=== PATIENT | female | born 1975 | race Caucasian/White ===

== ENCOUNTER 2016-08-13 13:19 | Emergency (ER) | payer SELFPAY ==
[2016-08-13 13:43] VITALS: BP 124/76
[2016-08-13] MEDS ORDERED: Ibuprofen TAB* 600 MG PO ONE (13:50)
--- NOTE | 2016-08-13 14:03 | UC ---
Throat Pain/Nasal Guero HPI - HPI Summary HPI Summary: Sore throat since yesterday. Fever of 101. Immunizations uTD. - History of Current Complaint Chief Complaint: UCGeneralIllness Stated Complaint: SORE THROAT,FEVER Time Seen by Provider: 08/13/16 13:44 Hx Obtained From: Patient Hx Last Menstrual Period: 08/06/16 ?: No Onset/Duration: Gradual Onset, Lasting Days Severity: Severe Cough: None Associated Signs & Symptoms: Positive: Dysphagia, Fever. Negative: FB Sensation , Drooling, Wheezing, Hoarseness, Sinus Discomfort, Nasal Discharge, Vomiting, Rash - Allergies/Home Medications Allergies/Adverse Reactions: Allergies Allergy/AdvReac Type Severity Reaction Status Date / Time No Known Allergies Allergy Verified 08/13/16 13:37 PMH/Surg Hx/FS Hx/Imm Hx Endocrine History Of: Denies: Diabetes - Surgical History Surgical History: Yes Surgery Procedure, Year, and Place: [facility] x3 - Family History Known Family History: Positive: Other - no related family ent history. - Social History Occupation: Employed Full-time Alcohol Use: None Substance Use Type: None Smoking Status (MU): Never Smoked Tobacco - Immunization History Most Recent Influenza Vaccination: 2016 Most Recent Tetanus Shot: UTD Review of Systems All Other Systems Reviewed And Are Negative: Yes Physical Exam Triage Information Reviewed: Yes Appearance: Well-Appearing, No Pain Distress, Obese Vital Signs: Initial Vital Signs Temp 100 F 08/13/16 13:37 Pulse 117 08/13/16 13:37 Resp 18 08/13/16 13:37 BP 124/76 08/13/16 13:37 Pulse Ox 99 08/13/16 13:37 Vital Signs Reviewed: Yes Eye Exam: Normal ENT: Positive: Pharyngeal erythema, TMs normal, Tonsillar swelling, Tonsillar exudate. Negative: Trismus, Muffled/hoarse voice Neck: Positive: Enlarged Nodes @ - dago submandibular. Respiratory Exam: Normal Cardiovascular Exam: Normal Abdominal Exam: Normal Musculoskeletal Exam: Normal Neurological Exam: Normal Psychological Exam: Normal Skin Exam: Normal Throat Pain/Nasal Course/Dx - Course Course Of Treatment: non toxic. pleasant. purulence, strawbery pharynx and swelling.c/w bacterial pharyngitis. - Differential Dx/Diagnosis Provider Diagnoses: bacterial pharyngitis. Discharge - Discharge Plan Condition: Good Disposition: HOME Prescriptions: Amoxicillin/Clavulanate TAB* [Augmentin TAB 875*] 875 mg PO BID #20 tab Ibuprofen TAB* [Motrin TAB* 600 MG] 600 mg PO Q6H PRN #20 tab PRN Reason: Pain Patient Education Materials: Strep Throat (ED) Forms: *Work Release Referrals: Everette Marino MD [Primary Care Provider] - If Needed
== END 2016-08-13 14:05 | disposition home or self-care (01) ==
LOC: UCCORT 13:19
DX: J20.8 Acute bronchitis due to other specified organisms (principal); R50.9 Fever, unspecified; E66.9 Obesity, unspecified
CPT/HCPCS: 99212; A9270-GY; G0463

== ENCOUNTER 2018-03-22 14:42 | Emergency (ER) | payer OTHER ==
[2018-03-22 15:22] VITALS: BP 124/82
--- NOTE | 2018-03-22 16:55 | UC ---
Throat Pain/Nasal Guero HPI - HPI Summary HPI Summary: C/O sore throat x 3 days with fever today. Slight cough - History of Current Complaint Chief Complaint: UCGeneralIllness Stated Complaint: SORE THROAT Time Seen by Provider: 03/22/18 16:48 Hx Last Menstrual Period: 03/08/18 ?: No Onset/Duration: Sudden Onset, Lasting Days - 3, Worse Since - today Severity: Moderate Pain Intensity: 7 Cough: Nonproductive Associated Signs & Symptoms: Positive: Dysphagia - Allergies/Home Medications Allergies/Adverse Reactions: Allergies Allergy/AdvReac Type Severity Reaction Status Date / Time No Known Allergies Allergy Verified 03/22/18 15:23 PMH/Surg Hx/FS Hx/Imm Hx Previously Healthy: Yes - Surgical History Surgical History: Yes Surgery Procedure, Year, and Place: [facility] x3 - Family History Known Family History: Positive: Diabetes, Other - no related family ent history. - Social History Occupation: Employed Full-time Lives: With Family Alcohol Use: None Substance Use Type: None Smoking Status (MU): Never Smoked Tobacco - Immunization History Most Recent Influenza Vaccination: 2015 Most Recent Tetanus Shot: UTD Review of Systems All Other Systems Reviewed And Are Negative: Yes Constitutional: Positive: Fever ENT: Positive: Sore Throat Respiratory: Positive: Cough Is Patient Immunocompromised?: No Physical Exam Triage Information Reviewed: Yes Appearance: No Pain Distress, Ill-Appearing, Obese Vital Signs: Initial Vital Signs Temp 98.3 F 03/22/18 15:17 Pulse 102 03/22/18 15:17 Resp 18 03/22/18 15:17 BP 124/82 03/22/18 15:17 Pulse Ox 100 03/22/18 15:17 Vital Signs Reviewed: Yes Eyes: Positive: Conjunctiva Inflamed ENT: Positive: Pharyngeal erythema, TMs normal Neck: Positive: Tenderness @, Enlarged Nodes @ - anterior nodes bilaterally Respiratory: Positive: Lungs clear Cardiovascular Exam: Normal Musculoskeletal Exam: Normal Neurological Exam: Normal Psychological Exam: Normal Skin Exam: Normal Throat Pain/Nasal Course/Dx - Differential Dx/Diagnosis Differential Diagnosis/HQI/PQRI: Epiglottitis, Peritonsillar Abscess, Pharyngitis, Tonsillitis Provider Diagnosis: Strep pharyngitis Discharge - Sign-Out/Discharge Documenting (check all that apply): Patient Departure All imaging exams completed and their final reports reviewed: No Studies - Discharge Plan Condition: Stable Disposition: HOME Prescriptions: Amoxicillin PO (*) [Amoxicillin 875 MG (*)] 875 mg PO BID #20 tab Patient Education Materials: Strep Throat (ED), Amoxicillin (By mouth) Referrals: Everette Marino MD [Primary Care Provider] - - Billing Disposition and Condition Condition: STABLE Disposition: Home
== END 2018-03-22 17:10 | disposition home or self-care (01) ==
LOC: UCCORT 14:42
DX: J02.0 Streptococcal pharyngitis (principal); B95.0 Streptococcus, group A, as the cause of diseases classified elsewhere
CPT/HCPCS: 87651; 99212; G0463